=== PATIENT | female | born 1940 | race African-American/Black ===

== ENCOUNTER → 2016-08-22 | Outpatient (CLI) | payer OTHER ==
[~2016-08-22] MED LIST: AMOXICILLIN 50500 MG PO; ASPIRIN EC81 M1 PO; ATENOLOL 50MG T50 M1 PO; FELODIPINE ER10 MG PO; HYDROCHLOROTHIA25 M1 PO; LEVEMIR SUBQ; LIPITOR10 MG PO; LISINOPRIL40 MG PO; MACROBID 100 M100 M1 PO; NOVOLIN N100 UNIT/1 SUBQ; NOVOLIN R100 UNIT/1 IJ; NOVOLOG100 UNIT/1 SUBQ; VITAMINC500 PO; ZOCOR20 MG PO
== END ==
LOC: HYPER 07:04
DX: I87.2 Venous insufficiency (chronic) (peripheral) (principal); L97.812 Non-pressure chronic ulcer of other part of right lower leg with fat layer exposed; E11.51 Type 2 diabetes mellitus with diabetic peripheral angiopathy without gangrene; I10 Essential (primary) hypertension; I70.234 Atherosclerosis of native arteries of right leg with ulceration of heel and midfoot; E11.622 Type 2 diabetes mellitus with other skin ulcer; I65.29 Occlusion and stenosis of unspecified carotid artery; Z79.4 Long term (current) use of insulin; Z86.73 Personal history of transient ischemic attack (TIA), and cerebral infarction without residual deficits; Z89.512 Acquired absence of left leg below knee

== ENCOUNTER → 2016-09-06 | Outpatient (CLI) | payer OTHER | LOC: HYPER 07:06 | DX: I87.2 Venous insufficiency (chronic) (peripheral) (principal); L97.812 Non-pressure chronic ulcer of other part of right lower leg with fat layer exposed; E11.622 Type 2 diabetes mellitus with other skin ulcer; E11.51 Type 2 diabetes mellitus with diabetic peripheral angiopathy without gangrene; Z79.4 Long term (current) use of insulin; I10 Essential (primary) hypertension; Z86.73 Personal history of transient ischemic attack (TIA), and cerebral infarction without residual deficits ==

== ENCOUNTER → 2016-11-09 | Outpatient (CLI) | payer OTHER | LOC: HYPER 10-26 15:18 | DX: E11.622 Type 2 diabetes mellitus with other skin ulcer (principal); L97.812 Non-pressure chronic ulcer of other part of right lower leg with fat layer exposed; I87.2 Venous insufficiency (chronic) (peripheral); I70.234 Atherosclerosis of native arteries of right leg with ulceration of heel and midfoot; E11.51 Type 2 diabetes mellitus with diabetic peripheral angiopathy without gangrene; E11.40 Type 2 diabetes mellitus with diabetic neuropathy, unspecified; I10 Essential (primary) hypertension; Z79.4 Long term (current) use of insulin; Z86.73 Personal history of transient ischemic attack (TIA), and cerebral infarction without residual deficits ==

== ENCOUNTER → 2016-11-23 | Outpatient (CLI) | payer OTHER | LOC: HYPER 07:12 | DX: I87.2 Venous insufficiency (chronic) (peripheral) (principal); I70.234 Atherosclerosis of native arteries of right leg with ulceration of heel and midfoot; E11.622 Type 2 diabetes mellitus with other skin ulcer; L97.811 Non-pressure chronic ulcer of other part of right lower leg limited to breakdown of skin; E11.51 Type 2 diabetes mellitus with diabetic peripheral angiopathy without gangrene; R60.9 Edema, unspecified; I25.10 Atherosclerotic heart disease of native coronary artery without angina pectoris; I10 Essential (primary) hypertension; E11.40 Type 2 diabetes mellitus with diabetic neuropathy, unspecified; Z86.73 Personal history of transient ischemic attack (TIA), and cerebral infarction without residual deficits ==

== ENCOUNTER → 2016-12-11 | Outpatient (CLI) | payer OTHER | LOC: HYPER 07:11 | DX: I87.2 Venous insufficiency (chronic) (peripheral) (principal); I70.234 Atherosclerosis of native arteries of right leg with ulceration of heel and midfoot; E11.622 Type 2 diabetes mellitus with other skin ulcer; L97.811 Non-pressure chronic ulcer of other part of right lower leg limited to breakdown of skin; E11.51 Type 2 diabetes mellitus with diabetic peripheral angiopathy without gangrene; R60.9 Edema, unspecified; I10 Essential (primary) hypertension; E11.40 Type 2 diabetes mellitus with diabetic neuropathy, unspecified; Z79.4 Long term (current) use of insulin; Z86.73 Personal history of transient ischemic attack (TIA), and cerebral infarction without residual deficits; Z89.512 Acquired absence of left leg below knee ==

== ENCOUNTER → 2016-12-25 | Outpatient (CLI) | payer OTHER | LOC: HYPER 07:13 | DX: I70.234 Atherosclerosis of native arteries of right leg with ulceration of heel and midfoot (principal); E11.622 Type 2 diabetes mellitus with other skin ulcer; L97.811 Non-pressure chronic ulcer of other part of right lower leg limited to breakdown of skin; E11.51 Type 2 diabetes mellitus with diabetic peripheral angiopathy without gangrene; R60.9 Edema, unspecified; E11.40 Type 2 diabetes mellitus with diabetic neuropathy, unspecified; I25.10 Atherosclerotic heart disease of native coronary artery without angina pectoris; Z79.4 Long term (current) use of insulin; Z86.73 Personal history of transient ischemic attack (TIA), and cerebral infarction without residual deficits; Z89.512 Acquired absence of left leg below knee ==

== ENCOUNTER → 2017-01-22 | Outpatient (CLI) | payer OTHER | LOC: HYPER 07:11 | DX: I87.2 Venous insufficiency (chronic) (peripheral) (principal); E11.622 Type 2 diabetes mellitus with other skin ulcer; I70.234 Atherosclerosis of native arteries of right leg with ulceration of heel and midfoot; L97.812 Non-pressure chronic ulcer of other part of right lower leg with fat layer exposed; E11.51 Type 2 diabetes mellitus with diabetic peripheral angiopathy without gangrene; R60.9 Edema, unspecified; I25.10 Atherosclerotic heart disease of native coronary artery without angina pectoris; I10 Essential (primary) hypertension; E11.40 Type 2 diabetes mellitus with diabetic neuropathy, unspecified; Z79.4 Long term (current) use of insulin; Z86.73 Personal history of transient ischemic attack (TIA), and cerebral infarction without residual deficits; Z89.512 Acquired absence of left leg below knee ==

== ENCOUNTER → 2017-02-07 | Outpatient (CLI) | payer OTHER | LOC: HYPER 07:05 | DX: I87.2 Venous insufficiency (chronic) (peripheral) (principal); L97.812 Non-pressure chronic ulcer of other part of right lower leg with fat layer exposed; E11.622 Type 2 diabetes mellitus with other skin ulcer; E11.51 Type 2 diabetes mellitus with diabetic peripheral angiopathy without gangrene; H54.0 Blindness, both eyes; I25.10 Atherosclerotic heart disease of native coronary artery without angina pectoris; I10 Essential (primary) hypertension; E11.40 Type 2 diabetes mellitus with diabetic neuropathy, unspecified; Z89.512 Acquired absence of left leg below knee; Z86.73 Personal history of transient ischemic attack (TIA), and cerebral infarction without residual deficits; Z79.4 Long term (current) use of insulin ==

== ENCOUNTER → 2017-03-06 | Outpatient (CLI) | payer OTHER | LOC: HYPER 06:59 | DX: I87.2 Venous insufficiency (chronic) (peripheral) (principal); I70.238 Atherosclerosis of native arteries of right leg with ulceration of other part of lower leg; E11.622 Type 2 diabetes mellitus with other skin ulcer; L97.812 Non-pressure chronic ulcer of other part of right lower leg with fat layer exposed; E11.51 Type 2 diabetes mellitus with diabetic peripheral angiopathy without gangrene; H54.0 Blindness, both eyes; E11.40 Type 2 diabetes mellitus with diabetic neuropathy, unspecified; I25.10 Atherosclerotic heart disease of native coronary artery without angina pectoris; I10 Essential (primary) hypertension; Z79.4 Long term (current) use of insulin; Z86.73 Personal history of transient ischemic attack (TIA), and cerebral infarction without residual deficits; Z89.512 Acquired absence of left leg below knee ==

== ENCOUNTER → 2017-03-21 | Outpatient (CLI) | payer OTHER | LOC: HYPER 07:13 | DX: I87.2 Venous insufficiency (chronic) (peripheral) (principal); I70.234 Atherosclerosis of native arteries of right leg with ulceration of heel and midfoot; E11.622 Type 2 diabetes mellitus with other skin ulcer; L97.812 Non-pressure chronic ulcer of other part of right lower leg with fat layer exposed; E11.51 Type 2 diabetes mellitus with diabetic peripheral angiopathy without gangrene; E11.40 Type 2 diabetes mellitus with diabetic neuropathy, unspecified; H54.0 Blindness, both eyes; I25.10 Atherosclerotic heart disease of native coronary artery without angina pectoris; I10 Essential (primary) hypertension; Z79.4 Long term (current) use of insulin; Z86.73 Personal history of transient ischemic attack (TIA), and cerebral infarction without residual deficits; Z89.512 Acquired absence of left leg below knee ==

== ENCOUNTER → 2017-05-23 | Outpatient (CLI) | payer OTHER | LOC: HYPER 07:07 | DX: I87.2 Venous insufficiency (chronic) (peripheral) (principal); L97.812 Non-pressure chronic ulcer of other part of right lower leg with fat layer exposed; I70.234 Atherosclerosis of native arteries of right leg with ulceration of heel and midfoot; E11.622 Type 2 diabetes mellitus with other skin ulcer; E11.51 Type 2 diabetes mellitus with diabetic peripheral angiopathy without gangrene; H54.7 Unspecified visual loss; I25.10 Atherosclerotic heart disease of native coronary artery without angina pectoris; I10 Essential (primary) hypertension; E11.40 Type 2 diabetes mellitus with diabetic neuropathy, unspecified; Z89.512 Acquired absence of left leg below knee; Z79.4 Long term (current) use of insulin; Z86.73 Personal history of transient ischemic attack (TIA), and cerebral infarction without residual deficits ==

== ENCOUNTER → 2017-06-20 | Outpatient (CLI) | payer OTHER | LOC: HYPER 07:13 | DX: E11.622 Type 2 diabetes mellitus with other skin ulcer (principal); L97.812 Non-pressure chronic ulcer of other part of right lower leg with fat layer exposed; I70.234 Atherosclerosis of native arteries of right leg with ulceration of heel and midfoot; L97.411 Non-pressure chronic ulcer of right heel and midfoot limited to breakdown of skin; E11.51 Type 2 diabetes mellitus with diabetic peripheral angiopathy without gangrene; Z79.4 Long term (current) use of insulin; Z86.73 Personal history of transient ischemic attack (TIA), and cerebral infarction without residual deficits; I10 Essential (primary) hypertension ==

== ENCOUNTER → 2017-07-16 | Outpatient (CLI) | payer OTHER | LOC: HYPER 07:19 | DX: E11.622 Type 2 diabetes mellitus with other skin ulcer (principal); L97.812 Non-pressure chronic ulcer of other part of right lower leg with fat layer exposed; I70.238 Atherosclerosis of native arteries of right leg with ulceration of other part of lower leg; E11.51 Type 2 diabetes mellitus with diabetic peripheral angiopathy without gangrene; I87.2 Venous insufficiency (chronic) (peripheral); I10 Essential (primary) hypertension; E11.40 Type 2 diabetes mellitus with diabetic neuropathy, unspecified; Z79.4 Long term (current) use of insulin; Z86.73 Personal history of transient ischemic attack (TIA), and cerebral infarction without residual deficits; Z89.512 Acquired absence of left leg below knee ==

== ENCOUNTER → 2017-08-27 | Outpatient (CLI) | payer OTHER | LOC: HYPER 07:15 | DX: I70.234 Atherosclerosis of native arteries of right leg with ulceration of heel and midfoot (principal); L97.812 Non-pressure chronic ulcer of other part of right lower leg with fat layer exposed; E11.622 Type 2 diabetes mellitus with other skin ulcer; E11.51 Type 2 diabetes mellitus with diabetic peripheral angiopathy without gangrene; I87.2 Venous insufficiency (chronic) (peripheral); H54.7 Unspecified visual loss; I25.10 Atherosclerotic heart disease of native coronary artery without angina pectoris; I10 Essential (primary) hypertension; E11.40 Type 2 diabetes mellitus with diabetic neuropathy, unspecified; Z89.512 Acquired absence of left leg below knee; Z79.4 Long term (current) use of insulin; Z86.73 Personal history of transient ischemic attack (TIA), and cerebral infarction without residual deficits ==

== ENCOUNTER → 2017-09-17 | Outpatient (CLI) | payer OTHER | LOC: HYPER 06:49 | DX: I87.2 Venous insufficiency (chronic) (peripheral) (principal); L97.812 Non-pressure chronic ulcer of other part of right lower leg with fat layer exposed; E11.622 Type 2 diabetes mellitus with other skin ulcer; I70.238 Atherosclerosis of native arteries of right leg with ulceration of other part of lower leg; E11.51 Type 2 diabetes mellitus with diabetic peripheral angiopathy without gangrene; H54.7 Unspecified visual loss; I10 Essential (primary) hypertension; E11.40 Type 2 diabetes mellitus with diabetic neuropathy, unspecified; Z79.4 Long term (current) use of insulin; Z86.73 Personal history of transient ischemic attack (TIA), and cerebral infarction without residual deficits; Z89.512 Acquired absence of left leg below knee ==

== ENCOUNTER → 2017-10-15 | Outpatient (CLI) | payer OTHER | LOC: HYPER 07:04 | DX: E11.622 Type 2 diabetes mellitus with other skin ulcer (principal); L97.811 Non-pressure chronic ulcer of other part of right lower leg limited to breakdown of skin; I70.238 Atherosclerosis of native arteries of right leg with ulceration of other part of lower leg; E11.51 Type 2 diabetes mellitus with diabetic peripheral angiopathy without gangrene; H54.7 Unspecified visual loss; I10 Essential (primary) hypertension; E11.40 Type 2 diabetes mellitus with diabetic neuropathy, unspecified; Z89.512 Acquired absence of left leg below knee; Z79.4 Long term (current) use of insulin; Z86.73 Personal history of transient ischemic attack (TIA), and cerebral infarction without residual deficits ==

== ENCOUNTER 2019-05-26 08:52 | Inpatient (IN) | payer OTHER ==
[~2019-05-26] VITALS: Ht 172.7 cm; Wt 73.3 kg
[~2019-05-26 08:52] MED LIST changes: -LEVEMIR SUBQ; +LEVEMIR100 UNIT/1 SUBQ
[2019-05-26 08:54] VITALS: BP 166/90
[2019-05-26] MEDS ORDERED: PRAVACHOL20 MG PO (08:59)
[2019-05-26] MEDS ORDERED: ASPIR 8181 MG PO (08:59)
[2019-05-26 09:45] LABS: HEMATOCRIT 33.6 % (37.0-47.0); HEMOGLOBIN 11.1 gm/dL (12.0-15.0); MCH 25.7 pg (26.0-34.0); MCHC 32.9 g/dL (28.0-37.0); MCV 78.2 fL (80.0-100.0); RBC 4.3 mil/uL (4.20-5.00); RDW 15.4 % (10.5-14.5); WBC 7.3 thou/uL (4.0-11.0)
[2019-05-26 09:56] LABS: CALCIUM 9.5 mg/dL (8.5-10.1); CREATININE 0.8 mg/dL (0.6-1.0); POTASSIUM 3.7 mmol/L (3.5-5.1)
[2019-05-26 09:58] LABS: URINE BLOOD 2+ (Negative); URINE CLARITY CLOUDY; URINE GLUCOSE-RANDOM* NEGATIVE (Negative); URINE KETONES 2+ (Negative); URINE NITRITE-REFLEX NEGATIVE (Negative); URINE PROTEIN (DIPSTICK) TRACE (Negative); URINE SPECIFIC GRAVITY >= 1.030 (1.005-1.035)
[2019-05-26 10:00] LABS: URINE LEUKOCYTES-REFLEX 2+ (Negative)
[2019-05-26 10:01] LABS: ICTOTEST (BILI CONFIRMATORY) Negative (Negative); URINE BILIRUBIN NEGATIVE (Negative); URINE COLOR DARK YELLOW
[2019-05-26 10:20] LABS: SQUAMOUS 0-3 Few /LPF (0-3)
[2019-05-26 10:21] LABS: BACTERIA-REFLEX 1-9 Few /HPF (None Seen); CASTS None Seen /LPF (None Seen); CRYSTALS None Seen /LPF (None Seen); URINE RBC 0-2 Rare /HPF (0-2); URINE WBC-REFLEX 6-15 Few /HPF (0-5)
[2019-05-26 13:30] VITALS: BP 149/87
[2019-05-26 14:04] VITALS: BP 144/89
[2019-05-26 14:33] VITALS: BP 134/81
--- NOTE | 2019-05-26 17:13 | NUR ---
Admitted from the ER due to altered mental status, UTI. Pt confused and drowsy; unable to obtain admission information and assessment from her, no relative present upon admission. Transferred to bed safely. Admission vital signs, height and weight taken, admission care rendered. On blood sugar monitoring- taken and recorded accordingly. With IV at L jugular, D5 1/2NS infusing at 75cc/hr. With L BKA noted- stump fully healed; with scars from healed pressure sore at R buttocks/thigh. A/W pt's son to obtain more information from patient. Sacrum checked- no pressure sores noted. On room air. Vital signs stable. Falls risk- falls bundle in place.
[2019-05-26 19:57] VITALS: BP 142/73
--- NOTE | 2019-05-27 04:35 | NUR ---
ASSUMED CARE OF PT @1900. PT ALERT BUT CONFUSED. PT IS INCONT. PT IS A DIABETIC. HAS BG SLIDING SCALE BEFORE MEALS BUT NONE AT BEDTIME. BED TIME BG WAS 247 [employer] EXAMINER MAURA NOTIFIED AND SHE RECOMMENDED CONT MONITORING. A SPOT BG CHECK WAS DONE AT 0415 AND IT WAS 301MG/DL. TANIA LORENZO WAS CALLED AGAIN BUT DUE TO A CODE BLUE IN ANOTHER UNIT, NO RESPONSE OF YET.
[2019-05-27 05:43] LABS: HEMATOCRIT 34.1 % (37.0-47.0); HEMOGLOBIN 11.2 gm/dL (12.0-15.0); MCH 25.8 pg (26.0-34.0); MCHC 32.7 g/dL (28.0-37.0); MCV 78.9 fL (80.0-100.0); RBC 4.33 mil/uL (4.20-5.00); RDW 15.7 % (10.5-14.5); WBC 6.3 thou/uL (4.0-11.0)
[2019-05-27 05:45] LABS: CREATININE 0.7 mg/dL (0.6-1.0); POTASSIUM 4.1 mmol/L (3.5-5.1)
[2019-05-27 08:00] VITALS: BP 145/82
--- NOTE | 2019-05-27 09:10 | NUR ---
WOUND CONSULT; RIGHT LEG WOUND IS HEALED. THE WOUND HAD AN OLD SCABBED AREA WAS REMOVED WITH NO EFFORT/PRESSURE REVEALIN HEALTHY TISSUE. THIS AREA HAS HEALED WITH A DEPRESSION WITH HEALTHY VIAIBLE HEALED EPITHELIAL TISSUE PRSENT. NO NEED TO FOLLOW THIS PATIENT. RECONSULT IF NEEDED.
--- NOTE | 2019-05-27 11:58 | NUR ---
If pt with continued chewing difficulty, can change diet to mechanical altered.
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
--- NOTE | 2019-05-27 14:26 | NUR ---
PT ADMITTED RELATED TO UTI AND AMS. CM REVIEWED CHART AND SPOKE WITH CARE TEAM. CM MET WITH PT AT BEDSIDE THIS DAY. PT WASN'T ABLE TO ANSWER ASSESSMENT QUESTIONS. CM CALLED PT'S SON. HE INDICATED THAT PT RESIDES IN A HOUSE WITH HIM AND HIS WITH NO STEPS TO ENTER AND NONE INSIDE. HE INDICATED THAT PT HAS A HOSPITAL BED THROUGH [facility], A WHEELCHAIR, AND A LENCHO LIFT. SON INDICATED HE ASSISTS PT WITH ADLS. PT'S SON STATED THAT PT HAS PRIVATE DUTY SERVICES THROUGH [employer] FOR 4HRS PER DAY. HE INDICATED THAT SOMEONE IS ALWAYS THERE WITH PT. SON INDICATED THAT PLAN IS FOR PT TO RETURN HOME WITH [employer] SERVICES AND HH UPON [place]. CM TO FOLLOW INDICATED WITH DC PLANNING.
[2019-05-27 15:00] VITALS: BP 115/67
--- NOTE | 2019-05-27 17:25 | NUR ---
ASSUMED CARE 0700. DROWSY WILL RESPOND WITH YES WHEN CALL HER NAME, UNABLE TO ANSWER QUESTIONS, ATTEMPTS TO HELP WHEN GIVING DIRECTIONS. MAX ASSISTANCE. INCONTINENT OF BLADDER, OLD SCAR WOUNDS ON BOTTOM APPLIED BARRIER CREAM. REPOSOTION Q2 HOURS TOLLERATED. SON BEDSIDE THIS AFTERNOON AND SIGN CONSENT FORMS. BED ALARM SET AND BED LOCKED. CALL LIGHT IN REACH HOWEVER, PT UNABLE TO DEMONSTRATE CALL LIGHT USE. CLOSE TO NURSING STATIONS, STAFF ASSIST WITH ALL ADL'S AND ANTICIPATE NEEDS.
[2019-05-27 20:12] VITALS: BP 117/71
[2019-05-28 03:39] VITALS: BP 122/65
--- NOTE | 2019-05-28 03:52 | NUR ---
Assessment completed. pt alert but can only answer to yes and no questions. tylenol was given for generalized discomfort. pt has not been able to urinate for over 8hrs. bladder scanned showed 183ml. will keep monitoring. pt was coughing after a drink of thin liquids. ?speech consult. no s/s of distress. bladder palpable and non-distended. q2turn. will cont to monitor
[2019-05-28 08:01] VITALS: BP 124/71
--- NOTE | 2019-05-28 14:01 | NUR ---
DISCHARGE PLANNING. PATIENT ADMITTED FROM HOME, ON SERVICE WITH [facility] AND PRIVATE DUTY SERVICES. PLAN IS FOR PATIENT TO DISCHARGE TO HOME WITH RESUMPTION OF [facility]. CLINICAL INFORMATION FAXED TO [facility], VERIFIED RECEIVED.
[2019-05-28 14:37] VITALS: BP 106/61
--- NOTE | 2019-05-28 15:30 | NUR ---
PHYSICIAN INDICATED THAT PT IS PROGRESSING SLOWLY ABD THAT HE MIGHT BE INTERESTED IN HER GOING FOR SHORT TERM POST ACUTE CARE STAY UPON DC. CM SPOKE WITH PT'S SON BUT HE INDICATED HE DIDN'T WANT PT GOING TO REHAB THAT HE PREFERRED PT RETURNING HOME WITH [facility] HH AND PD SERVICES. CLINICAL UPDATES SENT TO [facility]. CM NOTIFIED PHYSICIAN OF PT'S PREFERENCE. CM TO FOLLOW INDICATED WITH DC PLANNING.
--- NOTE | 2019-05-28 17:23 | NUR ---
Received awake on bed, pt drowsy but rousable. On room air. On blood sugar monitoring, taken and recorded accordingly- with sliding scale insulin prescribed. Pt turned regularly on her sides. Assisted in ADLs; assistsed and encouraged in eating and drinking- INJECTION MOLDING MACHINE OPERATOR noticed pt is coughing upon giving prescribed liquids, Dr Mcelroy informed that pt could benefit on ST evaluation- order placed. Pt seen by ST- prescribed for pt to have pureed diet and pudding thick fluids- given as prescribed. Incontinent of B/B- pad checked frequently, and changed as needed. Pt seen by Dr Mcelroy- chest xray, blood draw done, to straight cath pt if Bladder scan is more than 400mls- bladder scan done 108mls. Vital signs stable.
[2019-05-28 19:40] VITALS: BP 127/51
[2019-05-29 03:50] LABS: HEMOGLOBIN 11.6 gm/dL (12.0-15.0); MCH 25.3 pg (26.0-34.0); MCHC 32.2 g/dL (28.0-37.0); MCV 78.6 fL (80.0-100.0); RBC 4.58 mil/uL (4.20-5.00); RDW 15.5 % (10.5-14.5); WBC 7.6 thou/uL (4.0-11.0)
[2019-05-29 03:56] LABS: ALBUMIN 2.3 g/dL (3.4-5.0); CALCIUM 9.2 mg/dL (8.5-10.1); CREATININE 0.8 mg/dL (0.6-1.0); TOTAL BILIRUBIN 0.3 mg/dL (<0.1-1.0); TOTAL PROTEIN 6.5 g/dL (6.4-8.2)
[2019-05-29 03:59] LABS: POTASSIUM 4.5 mmol/L (3.5-5.1)
--- NOTE | 2019-05-29 04:15 | NUR ---
PROGRESS PT PROGRESSING SLOWLY. SWALLOW PRECAUTIONS MAINTANED PT STILL COUGHED WITH PUDDING THICK LIQUIDS HAS A WEAK COUGH AND HAS A DIFFICULT TIME CLEARING AIRWAY. SUCTIONED ORALLY WITH FLEXIBLE SUCTION CATHETER AND REMOVED A LARGE AMOUNT OF THICK WHITE/CLEAR COLORED SPUTUM INCONTINENT OF DARK YELLOW URINE. PERICARE TURNS AND BARRIER CREAM USED TO PREVENT SKIN BREAKDOWN, FOOT ELEVATED. VSS CONTINUE POC.
[2019-05-29 08:00] VITALS: BP 137/52
--- NOTE | 2019-05-29 16:22 | NUR ---
VICKI MCKNIGHT WAS CALLED ON PT THIS AFTERNOON. PT PASSED. PT'S SON AND DTR IN LAW WERE NOTIFIED AND CAME TO VISIT PT AT BEDSIDE. TOMMIE INVOLVED AND PT IS TO BE TAKEN BY [employer] TO MOURGE AT THIS TIME. FAMILY IS TO NOTIFY [employer] OF CHOICE OF HOME. NO OTHER CM INTERVENTION INDICATED. CASE CLOSED.
--- NOTE | 2019-05-29 19:59 | NUR ---
PT LETHARGIC, EASY TO AROUSE. PT ABLE TO ANSWER YES OR NO. ASSUMED CARE OF PATIENT APPROX. 0715 WITH NO SIGNS OF DISTRESS OBSERVED. PATIENT TURNED APPROX. 0800 TO LEFT SIDE AND JOHNNA AREA CHECKED. ASPIRIN GIVEN CRUSHED IN PUDDING PER DIETARY/SPEECH THERAPY ORDERS. PATIENT COUGHED BUT WAS ABLE TO GET PUDDING WITH CRUSHED ASPIRIN DONE. PATIENT TURNED FOWLERS POSITION APPROX 0900 TO EAT. AROUND THAT TIME SPEECH THERAPIST CAME IN TO ASSIST WITH FEEDING AND EVALUATE PATIENT FURTHER. PATIENT GIVEN A BED BATH BY FIRE EXTINGUISHER TESTER APPROX 1030. THIS NURSE LAID EYES ON PATIENT APPROX 1000, AT THAT TIME PATIENT WAS LAYING ON HER LEFT SIDE, SPOKE WHEN I ASKED A QUESTION, NO SIGNS OF BREATHING DIFFICULTIES, NO COUGHING. NO SIGNS OF DISTRESS THAT WOULD ALERT THIS NURSE OTHERWISE. FIRE EXTINGUISHER TESTER TOOK BLOOD SUGAR APPROX. 1150. FIRE EXTINGUISHER TESTER WENT IN TO FEED PATIENT LUNCH APPROX. AND IMMEDIATELY TOLD THIS NURSE PATIENT WASNT RESPONDING. THIS NURSE WASNT ABLE TO AROUSE PATIENT, FELT NO PULSE AND IMMEDIATELY PULLED CODE BLUE LEVER AND RESUSITATION MEASURES BEGAN. AT THIS POINT, DOCTOR CALLED, SON CALLED. TIME OF CALLED AT 1307. PATIENT WAS AN ASPIRATION RISK, THIS NURSE DID NOT OBSERVE CHOKING, COUGHING, GASPING FOR AIR AT THE TIMES I WAS ASSISTED PATIENT WITH CARES.
--- NOTE | 2019-06-04 12:29 | D ---
[facility] [place] [address] DISCHARGE SUMMARY Name: ELISHA MEANS Room #: [address] [place] [address] IN M.R.#: [id number] Admission: 05/26/19 Attend Phys: nOur Mcelroy MD Discharge: 05/29/19 Date of : 38 Report #: [id number] THIS REPORT FOR: //name// CC: Onur Mcelroy DATE OF SERVICE: 05/29/2019 FINAL DIAGNOSES: 1. Cardiac arrest. 2. Diabetes type 2. 3. Atherosclerosis. 4. Peripheral artery disease. 5. Hypertension. 6. Metabolic encephalopathy. 7. Urinary tract infection. 8. Cerebrovascular disease. HOSPITAL COURSE: The patient was admitted to the Emergency Room with altered mental status for several days. There are reports of elevated blood sugars at home, but her blood sugar on admission through ER was 150. Urinalysis looked consistent with infection and she was treated briefly with IV fluid support followed with IV antibiotics. Her other home medications were continued. She was assessed by speech therapy at the bedside and an appropriate diet was ordered. Her other home medications and insulin were continued. Follow up lab data again showed normal white count and electrolytes, urine culture was negative, but I continued her on empiric antibiotics based on the urine sample from the ER. Blood sugars are reasonably controlled, ranging from 125-223. On 05/29/2019, she was found by the staff unresponsive, no spontaneous breathing or palpable pulse. A code blue was called and ACLS was administered. There was no return of cardiac rhythm and she was pronounced at approximately 1307. <ELECTRONICALLY SIGNED> By: Onur Mcelroy MD 06/04/19 1229 1314 [id number] Onur Mcelroy MD /nt
== END 2019-05-29 17:08 | DRG 689 ==
LOC: ER 08:52 → 4W 12:09 → EROBS 12:09 → 4W 14:03 → ENTRNSPT 05-29 13:24 → CMPTRNSPT 05-29 13:28 → 4W 05-29 17:08
PROVIDERS: Emergency Medicine; ADMIT Internal Medicine Geriatric Medicine
DX: N30.00 Acute cystitis without hematuria (principal); G92 Toxic encephalopathy; R65.10 Systemic inflammatory response syndrome (SIRS) of non-infectious origin without acute organ dysfunction; I10 Essential (primary) hypertension; E11.40 Type 2 diabetes mellitus with diabetic neuropathy, unspecified; A59.9 Trichomoniasis, unspecified; I46.9 Cardiac arrest, cause unspecified; I70.90 Unspecified atherosclerosis; E11.51 Type 2 diabetes mellitus with diabetic peripheral angiopathy without gangrene; E11.65 Type 2 diabetes mellitus with hyperglycemia; B99.9 Unspecified infectious disease; Z79.82 Long term (current) use of aspirin; Z79.899 Other long term (current) drug therapy; Z86.73 Personal history of transient ischemic attack (TIA), and cerebral infarction without residual deficits; Z89.512 Acquired absence of left leg below knee; Z90.49 Acquired absence of other specified parts of digestive tract; Z93.6 Other artificial openings of urinary tract status; Z88.8 Allergy status to other drugs, medicaments and biological substances; Z87.81 Personal history of (healed) traumatic fracture; Z95.820 Peripheral vascular angioplasty status with implants and grafts
CPT/HCPCS: 10040